=== PATIENT | male | born 1980 | race Native Hawaiian/Other Pacific Islander ===

== ENCOUNTER 2017-03-19 12:02 | Outpatient (CLI) | payer BC | END 2017-03-19 19:19 | disposition home or self-care (01) | LOC: CT 12:02 | DX: S09.8XXA Other specified injuries of head, initial encounter (principal); W21.09XA Struck by other hit or thrown ball, initial encounter; Y92.89 Other specified places as the place of occurrence of the external cause; Y99.8 Other external cause status ==